=== PATIENT | female | born 1935 | race Caucasian/White ===

== ENCOUNTER 2017-07-20 15:10 | Observation (INO) | payer MEDICARE, BC ==
[2017-07-20 16:12] LABS: BASOPHILS % (AUTO) 1 % (0-3); EOSINOPHILS % (AUTO) 2 % (0-9); HEMATOCRIT 35 % (35-47); MEAN CORPUSCULAR HGB CONC 35.3 gm/dl (32.0-36.0); MEAN CORPUSCULAR VOLUME 86 fL (81-99); MONOCYTES % (AUTO) 6.1 % (0-12); NEUTROPHILS % (AUTO) 68.8 % (37-80)
[2017-07-20 16:35] LABS: ALBUMIN 3.5 gm/dl (3.4-5.0); ALT 26 IU/L (14-63); CALCIUM 8.5 mg/dl (8.5-10.1); GLOM FILT RATE 87 mL/min (>60); POTASSIUM 3.5 mMol/L (3.5-5.1); SODIUM 134 mMol/L (136-145); THYROID STIMULATING HORMONE 1.031 uIU/ml (0.358-3.740)
[2017-07-20 16:44] LABS: APPEARANCE,URINE Clear; BILIRUBIN,URINE NEGATIVE (NEGATIVE); COLOR,URINE Yellow; GLUCOSE, URINE (UA) NEGATIVE (NEGATIVE); KETONES,URINE NEGATIVE (NEGATIVE); LEUKOCYTE ESTERASE ,URINE NEGATIVE (NEGATIVE); NITRATE,URINE NEGATIVE (NEGATIVE); OCCULT BLOOD,URINE NEGATIVE (NEG-TRACE); UROBILINOGEN,URINE 0.2 (0.2-1.0 EU)
[2017-07-20 16:47] LABS: RBC,URINE NEG (0-3AV/HPF); WBC,URINE NEG (0-5AV/HPF)
[2017-07-20 18:46] VITALS: RESP 16
[2017-07-20] MEDS: SODIUM CHLORIDE 0.9% FLUSH 10 ML SOL IV SCH (18:47)
[2017-07-20] MEDS: GABAPENTIN 100 MG CAP PO SCH (20:23)
[2017-07-20] MEDS ORDERED: IBUPROFEN 400 MG TAB PO PRN (22:00)
[2017-07-21] MEDS: SODIUM CHLORIDE 0.9% FLUSH 10 ML SOL IV SCH ×2 (07:39→09:42)
[2017-07-21] MEDS ORDERED: MEMANTINE HYDROCHLORIDE 10 MG TAB PO SCH (09:00)
[2017-07-21] MEDS ORDERED: LEVOTHYROXINE SODIUM 50 MCG TAB PO SCH (09:00)
[2017-07-21] MEDS ORDERED: NABUMETONE 500 MG PO SCH (09:00)
[2017-07-21] MEDS ORDERED: SERTRALINE HYDROCHLORIDE 50 MG TAB PO SCH (09:00)
[2017-07-21] MEDS: GABAPENTIN 100 MG CAP PO SCH ×2 (09:26→14:40)
[2017-07-21 09:31] VITALS: BP 96/60; PULSE 71; TEMP 98; O2SAT 96
== END 2017-07-21 16:35 | disposition home or self-care (01) | DRG 310 ==
LOC: ED 15:10 → ACUTE CARE 17:22 → UNDOADMOB 17:22 → ACUTE CARE 18:08
PROVIDERS: ADMIT Family Medicine; ATTEND Family Medicine
DX: R00.0 Tachycardia, unspecified (principal); R06.00 Dyspnea, unspecified
CPT/HCPCS: 71020; 80053; 81001; 84443; 84484; 85025; 93005; 93012; 99285

== ENCOUNTER 2018-04-03 06:53 | Day surgery (SDC) | payer MEDICARE, BC ==
[2018-04-03] MEDS ORDERED: PROPOFOL 10 MG/ML EMU IV ONE (08:58)
[2018-04-03 09:41] VITALS: BP 111/70; PULSE 67; RESP 18; TEMP 97.4; O2SAT 94
== END 2018-04-03 10:05 | disposition home or self-care (01) | DRG 951 ==
LOC: SURG 06:53
PROVIDERS: ATTEND Surgery
DX: Z12.11 Encounter for screening for malignant neoplasm of colon (principal); D12.0 Benign neoplasm of cecum; Z86.010 Personal history of colon polyps
CPT/HCPCS: J2704

== ENCOUNTER 2019-03-13 12:20 | Emergency (ER) | payer MEDICARE, BC ==
[2019-03-13 12:51] VITALS: TEMP 97.9
[2019-03-13 13:10] LABS: BASOPHILS % (AUTO) 1 % (0-3); EOSINOPHILS % (AUTO) 1 % (0-9); HEMATOCRIT 37 % (35-47); HEMOGLOBIN 12.2 gm/dl (12.0-15.5); LYMPHOCYTES % (AUTO) 17.6 % (10-50); MEAN CORPUSCULAR HEMOGLOBIN 29.1 pg (27.0-32.0); MEAN CORPUSCULAR VOLUME 88 fL (81-99); MONOCYTES % (AUTO) 6.6 % (0-12)
[2019-03-13 13:28] LABS: ALBUMIN 3.7 gm/dl (3.4-5.0); ALKALINE PHOSPHATASE 102 IU/L (46-116); ALT 41 IU/L (14-63); AST 31 IU/L (15-37); BILIRUBIN,TOTAL 0.4 mg/dl (0.2-1.0); BLOOD UREA NITROGEN 17 mg/dl (7-18); CALCIUM 8.8 mg/dl (8.5-10.1); CHLORIDE 99 mMol/L (98-107); CREATININE 0.78 mg/dl (0.60-1.00); GLUCOSE 97 mg/dl (74-106); POTASSIUM 3.9 mMol/L (3.5-5.1); SODIUM 135 mMol/L (136-145); TOTAL PROTEIN 7.1 gm/dl (6.4-8.2); TROP I < 0.017 ng/ml (0.000-0.056)
[2019-03-13 15:04] LABS: APPEARANCE,URINE Clear; BILIRUBIN,URINE NEGATIVE (NEGATIVE); COLOR,URINE Yellow; GLUCOSE, URINE (UA) NEGATIVE (NEGATIVE); KETONES,URINE NEGATIVE (NEGATIVE); LEUKOCYTE ESTERASE ,URINE 1+ (NEGATIVE); NITRATE,URINE NEGATIVE (NEGATIVE); OCCULT BLOOD,URINE NEGATIVE (NEG-TRACE); PH,URINE 7.5; UROBILINOGEN,URINE 0.2 (0.2-1.0 EU)
[2019-03-13 15:30] LABS: CRYSTALS NEGATIVE (0-3 AVE/HPF); EPITHELIAL CELLS 0-2 (SQUAMOUS); RBC,URINE NEG (0-3AV/HPF); WBC,URINE 0-3 (0-5AV/HPF)
[2019-03-13 15:31] LABS: BACTERIA 1+ (< 1+)
[2019-03-13 20:34] VITALS: O2SAT 96
[2019-03-13 20:35] VITALS: BP 100/53; PULSE 64; RESP 18
== END 2019-03-13 15:00 | disposition home or self-care (01) | DRG 556 ==
LOC: ED 12:20
DX: M62.838 Other muscle spasm (principal); R06.02 Shortness of breath; R42 Dizziness and giddiness
CPT/HCPCS: 36415; 80053; 81001; 84484; 85025; 87088; 93005; 99283